=== PATIENT | male | born 1995 | race Caucasian/White ===

== ENCOUNTER 2025-06-19 09:16 | Outpatient (OUT) | payer OTHER, SELFPAY ==
--- OUTSIDE RECORDS SUMMARY | 2025-06-19 09:23 | XMS_ITS | Clinical Summary ---
Author Organization [facility] Healthcare Address [address] [place] [address] Care Team Providers Care Procurement Cost Coordinator Name Role Phone Unavailable Primary Care Provider Unavailabl e Social History Tobacco Use Types Packs/Day Years Used Date Smoking Tobacco: Never Assessed Sex and Gender Information Value Date Recorded Sex Assigned at Not on file Legal Sex Male 8:23 PM EDT Gender Identity Not on file Sexual Orientation Not on file Last Filed Vital Signs Vital Sign Reading Time Taken Comments Blood Pressure 112/70 02/15/2018 12:00 PM EDT Pulse - - Temperature - - Respiratory Rate - - Oxygen Saturation - - Inhaled Oxygen Concentration - - Weight 105 kg (232 lb) 02/15/2018 12:00 PM EDT Height 175.3 cm (5' 9 ) 02/15/2018 12:00 PM EDT Body Mass Index 34.26 02/15/2018 12:00 PM EDT Plan of Treatment Not on file
[2025-06-19 09:49] LABS: Hematocrit 43.0 % (42.0-54.0); Hemoglobin 14.5 g/dL (14.0-18.0); Immature Granulocytes Abs Auto 0.02 10^3/uL (0.00-0.03); Immature Granulocytes Pct Auto 0.3 % (0.0-0.5); Lymphocytes Absolute Auto 1.5 10^3/uL (1.2-3.8); Mean Corpuscular HGB Conc 33.7 g/dL (29.9-35.2); Mean Corpuscular Hemoglobin 29.5 pg (25.9-34.0); Mean Corpuscular Volume 87.4 fL (80.0-94.0); Platelet Count 265 10^3/uL (150-450); Red Blood Count 4.92 10^6/uL (4.70-6.10); White Blood Count 7.5 10^3/uL (4.0-11.0)
[2025-06-19 10:18] LABS: Alanine Aminotransferase 30 U/L (16-63); Albumin Globulin Ratio 0.8; Albumin Level 3.5 g/dL (3.4-5.0); Alkaline Phosphatase 102 U/L (46-116); Anion Gap 14.4; Aspartate Amino Transferase 16 U/L (15-37); Blood Urea Nitrogen 21.0 mg/dL (7.0-18.0); Calcium 8.5 mg/dL (8.5-10.1); Carbon Dioxide 23.6 mmol/L (21.0-32.0); Chloride 106 mmol/L (98-107); Cholesterol 140 mg/dL (<=200); Estimated GFR (African America >60 (>=60 mL/min/1.73m^2); Estimated GFR (Non-African Ame >60 (>=60 mL/min/1.73m^2); Globulin 4.2 g/dL; Glucose 99 mg/dL (74-106); HDL Cholesterol 45 mg/dL (40-60); Potassium 4.0 mmol/L (3.5-5.1); Sodium 140 mmol/L (136-145); Thyroid Stimulating Hormone 1.491 uIU/mL (0.358-3.740); Total Protein 7.7 g/dL (6.4-8.2); Triglycerides 60 mg/dL (<=150); VLDL CHOLESTEROL 12.0 mg/dL
== END 2025-06-19 09:17 | disposition home or self-care (01) ==
LOC: LAB 09:21
PROVIDERS: PCP Family Medicine; Visit Provider Family Medicine
DX: Z00.00 Encounter for general adult medical examination without abnormal findings (principal)
CPT/HCPCS: 36415; 80053; 80061; 84443; 85025